=== PATIENT | female | born 1930 | race Caucasian/White ===

== ENCOUNTER 2016-07-30 22:28 | Emergency (ER) | payer OTHER ==
[~2016-07-30] VITALS: Ht 157.5 cm; Wt 68.0 kg
[~2016-07-30 22:28] MED LIST: ALPRAZOLAM0.25 MG PO; COUMADIN,JANTOVE4 MG PO; CRESTOR5 MG PO; EXFORGE 10/11 TABLET PO; INDERIDE 40/1 TABLET PO; LOVENOX80 MG/0.8 SC; Lofibra,Triglide PO; NEXIUM40 MG PO; Relafen PO; ZETIA10 MG PO
[2016-07-30 22:58] LABS: HEMATOCRIT 46.8 % (36.0-46.0); MCH 32.1 PG (29.0-34.0); MCHC 32.7 G/DL (30.0-36.0); MCV 98.1 FL (83-99); MEAN PLAT.VOLUME 10.2 uM^3 (9.5-12.4); PLATELET COUNT 252 K/uL (156-360); RBC DIS.WIDTH-CV 12.8 % (11.8-14.6); RBC DIS.WIDTH-SD 46.2 % (39-53); RED BLOOD COUNT 4.77 M/uL (3.80-5.20); WHITE BLOOD COUNT 10.2 K/uL (4.1-10.2)
[2016-07-30 23:06] LABS: CHLORIDE 104 mEq/L (99-109); SODIUM 141 mEq/L (136-147)
[2016-07-30 23:09] LABS: GLUCOSE 116 mg/dL (70-99)
[2016-07-30 23:10] LABS: ANION GAP 11 MEQ/L (2-14); TOTAL BILIRUBIN 0.4 mg/dL (0.0-1.0)
[2016-07-30 23:12] LABS: ALKALINE PHOSPHATASE 74 IU/L (3-129); GFR ESTIMATE (CALCULATED) 50 mL/min/
[2016-07-30 23:13] LABS: UREA NITROGEN (BUN) 22 mg/dL (9-23)
[2016-07-30 23:16] LABS: LIPASE 18 U/L (1.0-51.0)
[2016-07-30 23:55] LABS: ADD MIUA? YES; BILIRUBIN NEGATIVE; BLOOD MODERATE; COLOR YELLOW ((YELLOW)); GLUCOSE (STRIP) NEGATIVE; KETONES NEGATIVE; LEUKOCYTES TRACE; NITRITE NEGATIVE; PROTEIN (STRIP) NEGATIVE; SPECIFIC GRAVITY 1.014 (1.000-1.030); UROBILINOGEN 0.2 MG/DL (0.2-1.0)
[2016-07-31 00:21] LABS: BACTERIA NONE SEEN /HPF; EPITHELIAL CELLS NONE SEEN /HPF; HYALINE CASTS 0-5 /LPF; MUCUS NONE SEEN /LPF; RED BLOOD CELLS 15-20 /HPF (0-5); UCUL ADDED? NO
[2016-07-31] MEDS ORDERED: COLACE100 MG PO (00:53)
[2016-07-31] MEDS ORDERED: NORCO 5/3251 TABLET PO (00:53)
[2016-07-31 01:57] VITALS: BP 145/70
== END 2016-07-31 02:02 | disposition home or self-care (01) ==
LOC: EME → EDBD 22:28 → EME 22:28
PROVIDERS: Emergency Medicine
DX: K43.9 Ventral hernia without obstruction or gangrene (principal); I10 Essential (primary) hypertension; K21.9 Gastro-esophageal reflux disease without esophagitis; E78.5 Hyperlipidemia, unspecified; G89.29 Other chronic pain; F32.9 Major depressive disorder, single episode, unspecified; Z79.01 Long term (current) use of anticoagulants
CPT/HCPCS: 74177; 80053; 81003; 83605; 83690; 85027; 93005; 99281; 99284

== ENCOUNTER 2016-10-19 11:26 | Emergency (ER) | payer OTHER ==
[~2016-10-19] VITALS: Ht 157.5 cm; Wt 68.6 kg
[~2016-10-19 11:26] MED LIST changes: +COLACE100 MG PO; +NORCO 5/3251 TABLET PO
[2016-10-19 13:02] LABS: BASOPHIL COUNT 0.1 K/uL (0-0.1); EOSINOPHIL (%) 0.6 % (0-5); EOSINOPHIL COUNT 0.1 K/uL (0-0.3); HEMATOCRIT 48.9 % (36.0-46.0); IMMATURE GRANULOCYTE (%) 0.5 % (0.0-0.7); IMMATURE GRANULOCYTE COUNT 0.1 K/uL; LYMPHOCYTE COUNT 1.1 K/uL (1.0-2.8); MCH 31.2 PG (29.0-34.0); MCHC 32.9 G/DL (30.0-36.0); MCV 94.8 FL (83-99); MEAN PLAT.VOLUME 10.2 uM^3 (9.5-12.4); MONOCYTE (%) 4.1 % (3-12); MONOCYTE COUNT 0.4 K/uL (0-0.8); NEUTROPHIL (%) 84.2 % (45-76); PLATELET COUNT 258 K/uL (156-360); RBC DIS.WIDTH-CV 12.7 % (11.8-14.6); RBC DIS.WIDTH-SD 44.7 % (39-53); RED BLOOD COUNT 5.16 M/uL (3.80-5.20); WHITE BLOOD COUNT 10.6 K/uL (4.1-10.2)
[2016-10-19 13:13] LABS: CHLORIDE 104 mEq/L (99-109); POTASSIUM 4.5 mEq/L (3.7-5.4); SODIUM 138 mEq/L (136-147)
[2016-10-19 13:16] LABS: GLUCOSE 94 mg/dL (70-99)
[2016-10-19 13:17] LABS: ANION GAP 11 MEQ/L (2-14)
[2016-10-19 13:18] LABS: TOTAL BILIRUBIN 0.5 mg/dL (0.0-1.0)
[2016-10-19 13:19] LABS: ALKALINE PHOSPHATASE 75 IU/L (3-129); GFR ESTIMATE (CALCULATED) > 59 mL/min/
[2016-10-19 13:20] LABS: UREA NITROGEN (BUN) 20 mg/dL (9-23)
[2016-10-19 13:21] LABS: ADD MIUA? YES; BILIRUBIN NEGATIVE; BLOOD SMALL; COLOR YELLOW ((YELLOW)); GLUCOSE (STRIP) NEGATIVE; KETONES NEGATIVE; LEUKOCYTES SMALL; NITRITE NEGATIVE; PROTEIN (STRIP) NEGATIVE; SPECIFIC GRAVITY 1.006 (1.000-1.030); UROBILINOGEN 0.2 MG/DL (0.2-1.0)
[2016-10-19 13:21] LABS: TROP-I INTERPRETATION NEGATIVE; TROPONIN-I < 0.01 ng/mL (0.0-0.30)
[2016-10-19 13:23] LABS: LIPASE 26 U/L (1.0-51.0)
[2016-10-19 13:27] LABS: BACTERIA NONE SEEN /HPF; EPITHELIAL CELLS NONE SEEN /HPF; MUCUS TRACE /LPF; RED BLOOD CELLS 0-5 /HPF (0-5); UCUL ADDED? NO
[2016-10-19 16:15] VITALS: BP 146/67
[2016-10-22] MEDS ORDERED: NORVASC5 MG PO (11:37)
[2016-10-22] MEDS ORDERED: BISOPROLOL-HCT1 EAC2 PO (11:37)
[2016-10-22] MEDS ORDERED: PLAVIX75 MG PO (11:38)
[2016-10-22] MEDS ORDERED: PROTONIX40 MG PO (11:39)
[2016-10-22] MEDS ORDERED: AVAPRO150 MG PO (11:39)
[2016-10-22] MEDS ORDERED: ULTRAM50 MG PO (11:40)
[2016-10-22] MEDS ORDERED: PRAVACHOL40 MG PO (11:40)
[2016-10-22] MEDS ORDERED: LO-DOSE ASPIRIN81 M2 PO (11:41)
[2016-10-22] MEDS ORDERED: MAGNESIUM250 MG PO (11:42)
[2016-10-22] MEDS ORDERED: CALTRATE 600 +1 EAC1 PO (11:42)
[2016-10-22] MEDS ORDERED: CYANOCOBALAM1000 MCG PO (11:42)
== END 2016-10-19 16:15 | disposition home or self-care (01) ==
LOC: EME → EDBD 11:26 → EME 11:26
PROVIDERS: Emergency Medicine
DX: K46.9 Unspecified abdominal hernia without obstruction or gangrene (principal); R10.9 Unspecified abdominal pain; E78.5 Hyperlipidemia, unspecified; I10 Essential (primary) hypertension; K21.9 Gastro-esophageal reflux disease without esophagitis; Z79.01 Long term (current) use of anticoagulants
CPT/HCPCS: 74176; 80053; 81003; 83690; 84484; 85025; 93005; 99281; 99285; J2405; J7030

== ENCOUNTER 2016-10-24 09:45 | Day surgery (SDC) | payer OTHER ==
[~2016-10-24] VITALS: Ht 157.5 cm; Wt 68.0 kg
[~2016-10-24 09:45] MED LIST changes: +AVAPRO150 MG PO; +BISOPROLOL-HCT1 EAC2 PO; +CALTRATE 600 +1 EAC1 PO; +CYANOCOBALAM1000 MCG PO; +LO-DOSE ASPIRIN81 M2 PO; +MAGNESIUM250 MG PO; +NORVASC5 MG PO; +PLAVIX75 MG PO; +PRAVACHOL40 MG PO; +PROTONIX40 MG PO; +ULTRAM50 MG PO
[2016-10-24 10:32] VITALS: BP 172/72
[2016-10-24 10:39] LABS: INTER. NORMALIZED RATIO 1.1; PROTHROMBIN TIME 10.9 (9.2-11.2); PTT 28.1 (25-32)
[2016-10-24] MEDS ORDERED: NORCO 5/3251 TABLET PO (13:54)
[2016-10-24] MEDS ORDERED: COLACE100 MG PO (13:54)
[2016-10-24 16:25] VITALS: BP 162/59
[2016-10-24 17:15] VITALS: BP 152/76
[2016-10-24 18:37] VITALS: BP 147/74
== END 2016-10-24 18:41 | disposition home or self-care (01) ==
LOC: SDC 09:45
PROVIDERS: Thoracic Surgery (Cardiothoracic Vascular Surgery)
PROC: 0WUF0JZ Supplement Abdominal Wall with Synthetic Substitute, Open Approach (ICD-10-PCS; principal; 2016-10-24)
DX: K43.6 Other and unspecified ventral hernia with obstruction, without gangrene (principal); I10 Essential (primary) hypertension; E78.00 Pure hypercholesterolemia, unspecified; K21.9 Gastro-esophageal reflux disease without esophagitis; Z80.0 Family history of malignant neoplasm of digestive organs; Z82.49 Family history of ischemic heart disease and other diseases of the circulatory system; Z79.02 Long term (current) use of antithrombotics/antiplatelets; Z79.82 Long term (current) use of aspirin
CPT/HCPCS: 85610; 85730; 88302; 88304; C1781; J0330; J1100; J1170; J1200; J1885; J2405; J2710; J3010

== ENCOUNTER 2017-08-30 15:38 | Emergency (ER) | payer OTHER ==
[~2017-08-30] VITALS: Ht 157.5 cm; Wt 68.6 kg
[2017-08-30 17:27] LABS: HEMATOCRIT 46.6 % (36.0-46.0); MCH 32.9 PG (29.0-34.0); MCHC 34.3 G/DL (30.0-36.0); MCV 95.7 FL (83-99); PLATELET COUNT 234 K/uL (156-360); RBC DIS.WIDTH-CV 13.3 % (11.8-14.6); RBC DIS.WIDTH-SD 47.5 % (39-53); RED BLOOD COUNT 4.87 M/uL (3.80-5.20); WHITE BLOOD COUNT 7.2 K/uL (4.1-10.2)
[2017-08-30 17:36] LABS: CHLORIDE 108 mEq/L (99-109); POTASSIUM 3.7 mEq/L (3.7-5.4); SODIUM 141 mEq/L (136-147)
[2017-08-30 17:38] LABS: GLUCOSE 106 mg/dL (70-99)
[2017-08-30 17:42] LABS: CREATININE 0.8 mg/dL (0.6-1.3); GFR ESTIMATE (CALCULATED) > 59 mL/min/; UREA NITROGEN (BUN) 27 mg/dL (9-23)
[2017-08-30 22:22] VITALS: BP 138/69
== END 2017-08-30 22:26 | disposition home or self-care (01) ==
LOC: EME 15:38
PROVIDERS: Physician Assistant
DX: S52.121A Displaced fracture of head of right radius, initial encounter for closed fracture (principal); S63.255A Unspecified dislocation of left ring finger, initial encounter; S01.511A Laceration without foreign body of lip, initial encounter; W19.XXXA Unspecified fall, initial encounter; Z23 Encounter for immunization; Z79.02 Long term (current) use of antithrombotics/antiplatelets; Z79.82 Long term (current) use of aspirin; E78.5 Hyperlipidemia, unspecified; I10 Essential (primary) hypertension; K21.9 Gastro-esophageal reflux disease without esophagitis; F41.9 Anxiety disorder, unspecified; Z88.2 Allergy status to sulfonamides
CPT/HCPCS: 70450; 72125; 73080; 73130; 73140; 80048; 85027; 99281; 99284